=== PATIENT | male | born 1960 | race Caucasian/White ===

== ENCOUNTER → 2023-05-31 11:58 | Outpatient (CLI) | payer OTHER, SELFPAY ==
--- NOTE | 2023-05-31 12:00 | DI.RAD.S_ITS ---
PROCEDURE: XR LUMBAR SPINE 2-3V INDICATIONS: back pain TECHNIQUE: 3 views of the lumbar spine were acquired. COMPARISON: None. FINDINGS: Bones: 5 [id number] vertebrae are present. There is normal bony alignment. No vertebral body compression fractures. No suspicious bony lesions. Mild degenerative disc disease throughout the lumbar spine. Mild L4-L5 and L5-S1 facet arthropathy. Soft tissues: Overlying bowel gas pattern is normal. 4 millimeter stone projects over the midpole of the left kidney. IMPRESSION: 1. Multilevel degenerative disc disease. 2. Multilevel facet arthropathy. 3. No fracture. No acute osseous lesion. If symptoms and/or clinical suspicion for pathology persists, evaluation with MRI should be considered for further assessment. 4. Possible 4 millimeter left renal stone. Dictated by: Ruby Coelho MD, PhD on 05/31/2023 at 13:37 Approved by: Ruby Coelho MD, PhD on 05/31/2023 at 13:38
== END ==
PROVIDERS: PCP Family Medicine; Referring Provider Family Medicine; Visit Provider Family Medicine
DX: M47.816 Spondylosis without myelopathy or radiculopathy, lumbar region (principal); M47.817 Spondylosis without myelopathy or radiculopathy, lumbosacral region; M51.36 Other intervertebral disc degeneration, lumbar region; M54.50 Low back pain, unspecified
CPT/HCPCS: 72100

== ENCOUNTER → 2023-06-02 07:58 | Outpatient (CLI) | payer OTHER, SELFPAY ==
[2023-06-02 09:06] LABS: Add Manual Diff / Slide Review NO; Basophils Absolute Auto 0 /uL (0-100); Basophils Percent Auto 0.8 % (0-2); Eosinophils Absolute Auto 200 /uL (0-450); Eosinophils Percent Auto 4.3 % (2-4); Hematocrit 42.8 % (41-53); Hemoglobin 14.4 g/dL (13.5-17.5); Lymphocytes Absolute Auto 1400 /uL (1100-4500); Lymphocytes Percent Auto 33.5 % (25-40); Mean Corpuscular HGB Conc 33.7 % (30-36); Mean Corpuscular Hemoglobin 31.2 PG (26-34); Mean Corpuscular Volume 92.5 fL (80-100); Monocytes Absolute Auto 400 /uL (0-900); Monocytes Percent Auto 9.4 % (3-14); Neutrophils Absolute Auto 2200 /uL (1500-7000); Platelet Count 141 X10^3/uL (150-400); Red Blood Cell Count 4.62 X10^6/uL (4.5-5.9); Red Cell Distribution Width 13.5 % (11.6-14.8); White Blood Cell Count 4.2 X10^3/uL (4.5-11.0)
[2023-06-02 09:17] LABS: Alanine Aminotransferase 33 IU/L (<50); Albumin 4.3 g/dL (3.5-5.0); Albumin Globulin Ratio 1.8 (1.0-2.8); Alkaline Phosphatase 65 U/L (38-126); Aspartate Aminotransferase 38 IU/L (17-59); BUN Creatinine Ratio 17.6 (6-22); Bilirubin Total 0.7 mg/dL (0.2-1.3); Blood Urea Nitrogen 15 mg/dL (9-20); Carbon Dioxide 28 mmol/L (22-32); Chloride 104 mmol/L (98-107); Cholesterol 180 mg/dL (140-199); Estimated Glomerular Filt Rate > 60 mL/min (>60); Globulin 2.4 g/dL (1.7-4.1); Glucose 94 mg/dL (80-110); HDL Cholesterol 72 mg/dL (40-60); HEMOLYSIS < 15 (0-50); LDL Cholesterol Calculated 97 mg/dL (<100); Potassium 4.4 mmol/L (3.4-5.1); Sodium 137 mmol/L (137-145); Total Protein 6.7 g/dL (6.3-8.2); Triglycerides 56 mg/dL (35-150)
[2023-06-02 09:46] LABS: Prostate Specific Antigen 0.126 ng/mL (0.10-4.00)
== END ==
PROVIDERS: PCP Family Medicine; Referring Provider Family Medicine; Visit Provider Family Medicine
DX: E78.5 Hyperlipidemia, unspecified (principal); M19.90 Unspecified osteoarthritis, unspecified site; N40.0 Benign prostatic hyperplasia without lower urinary tract symptoms
CPT/HCPCS: 36415; 80053; 80061; 84153; 85025

== ENCOUNTER → 2023-06-30 11:35 | Outpatient (CLI) | payer OTHER, SELFPAY ==
--- NOTE | 2023-06-30 11:36 | DI.CT.S_ITS ---
PROCEDURE: CT IVP A/P W/WO INDICATIONS: Potential renal stone TECHNIQUE: Optional 5 mm thick noncontrast images acquired from the diaphragm to the symphysis pubis. After the administration of intravenous contrast, 5 mm thick images acquired from the diaphragm to the symphysis pubis after a 10-minute delay. 2 mm thick coronal and sagittal reformats were then performed of the kidneys and ureters. For radiation dose reduction, the following was used: automated exposure control, adjustment of mA and/or kV according to patient size. COMPARISON: [facility], CR, XR LUMBAR SPINE 2-3V, 05/31/2023, 12:04. FINDINGS: Image quality: Excellent. Lung bases: Lung bases are clear. Heart size is normal. Urinary system: There are 2 short linear nonobstructing stones in the lower pole of the right kidney. There is a 5 mm round stone in the midpole of the left kidney with Hounsfield units of 530 corresponding to the plain film finding. There are also 2 hyperdense cysts arising from the left kidney, the larger measuring 1.8 cm, and a few other simple parenchymal cysts. The ureters are nondilated. No ureteral calcifications. Normally opacified calices postcontrast. The urinary bladder is normal. Other solid organs: The liver is normal in size and contains occasional thin-walled cysts. Normal adrenal glands, spleen, pancreas, and biliary tree. Peritoneum and bowel: Bowel loops demonstrate normal wall thickness and caliber. No free fluid or air. Nodes and vessels: There is slight mesenteric fat stranding and several borderline mesenteric lymph nodes in the left upper quadrant mesentery. No other suspicious bulky or matted adenopathy in the mesentery or retroperitoneum. Normal variant circumaortic left renal vein. The vasculature is otherwise normal. Abdominal wall: Tiny fat containing umbilical hernia. Pelvis: Possible bilateral varicocele. Normal size prostate gland. No pelvic adenopathy. No inguinal hernias. No free pelvic fluid. Bones: 1.8 cm sclerotic mass in the right sacral ala, presumably benign bone island. No suspicious bone lesions. IMPRESSION: 1. Nonobstructing bilateral intrarenal calculi, left larger than right. 2. Benign-appearing left renal cysts. 3. Incidental mesenteric fat stranding and several lymph nodes may be reactive. Correlate with history of gastroenteritis. 4. Possible bilateral varicocele. Clinical correlation recommended. Dictated by: Ida Landis M.D. on 07/01/2023 at 12:19 Approved by: Ida Landis M.D. on 07/01/2023 at 12:29
== END ==
PROVIDERS: PCP Family Medicine; Referring Provider Family Medicine; Visit Provider Family Medicine
DX: N20.0 Calculus of kidney (principal); N28.1 Cyst of kidney, acquired
CPT/HCPCS: 74178; Q9967

== ENCOUNTER → 2023-08-11 13:36 | Outpatient (CLI) | payer OTHER, SELFPAY ==
--- NOTE | 2023-08-11 13:37 | DI.RAD.S_ITS ---
PROCEDURE: XR KUB INDICATIONS: Kidney stones TECHNIQUE: One view of the abdomen acquired. COMPARISON: [facility], CT, CT IVP A/P W/WO, 06/30/2023, 11:39. FINDINGS: Surgical changes and devices: None. Bowel: Bowel gas pattern is normal. Soft tissues: 2 millimeter calcific density projects over the right renal shadow. 5 millimeter calcific density projects over the left renal shadow. Bilateral lower pelvic phleboliths. Visualized solid organ contours appear normal in size. Bones: No suspicious bony lesions. IMPRESSION: Bilateral renal stones. Dictated by: Ruby Coelho MD, PhD on 08/11/2023 at 14:28 Approved by: Ruby Coelho MD, PhD on 08/11/2023 at 14:30
== END ==
PROVIDERS: PCP Family Medicine; Referring Provider Urology; Visit Provider Urology
DX: N20.0 Calculus of kidney (principal); N28.1 Cyst of kidney, acquired; N40.0 Benign prostatic hyperplasia without lower urinary tract symptoms; Z87.442 Personal history of urinary calculi
CPT/HCPCS: 74018; 81002

== ENCOUNTER → 2023-09-05 08:22 | Outpatient (CLI) | payer OTHER, SELFPAY ==
[2023-09-05 09:34] LABS: Hematocrit 41.9 % (41-53); Hemoglobin 14.4 g/dL (13.5-17.5); Mean Corpuscular HGB Conc 34.2 % (30-36); Mean Corpuscular Hemoglobin 31.3 PG (26-34); Mean Corpuscular Volume 91.4 fL (80-100); Platelet Count 142 X10^3/uL (150-400); Red Blood Cell Count 4.59 X10^6/uL (4.5-5.9); Red Cell Distribution Width 13.3 % (11.6-14.8); White Blood Cell Count 4.4 X10^3/uL (4.5-11.0)
== END ==
PROVIDERS: PCP Family Medicine; Referring Provider Urology; Visit Provider Urology
DX: D69.6 Thrombocytopenia, unspecified (principal)
CPT/HCPCS: 36415; 85027

== ENCOUNTER 2023-09-06 08:02 | Day surgery (SDC) | payer OTHER, SELFPAY ==
[2023-08-29 14:57] VITALS: BMI 26.4
[2023-09-06 08:22] VITALS: BMI 26.4
[2023-09-06 08:29] VITALS: BP 156/84; PULSE 92; RESP 17; TEMP 36.5; O2SAT 97
--- NOTE | 2023-09-06 08:31 | PM.PREOP ---
Pre-operative Note COVID-19 COVID-19 status: Not tested Interval Note History & Physical reviewed/Exam performed by Physician: Yes Changes to H&P: No
[2023-09-06] MEDS: LACTATED RINGERS 1,000 ML 21 ML IV (08:33)
[2023-09-06] MEDS: CEFAZOLIN 2 GM/100 ML PREMIX 100 ML IV (09:00)
--- NOTE | 2023-09-06 09:09 | SUR.OPER ---
Supine on ESWL table, head on gel donut, arms padded and tucked at sides, legs uncrossed for ESWL, for cystoscopy, legs up in stirrups.
--- NOTE | 2023-09-06 09:32 | PM.OP.1 ---
Procedure & Clinicians Procedure: Left extracorporeal shockwave lithotripsy with cystoscopy and left ureteral stent placement. Same procedure as scheduled: Yes Indications: This 63-year-old male was found to have bilateral renal calculi left greater than right incidentally found will being worked up for back pain. He presents this time to have the left-sided stones treated as they are the larger burden. They were also in the mid to upper kidney. Surgeon: Mars Louise Click Yes if Unassisted: Yes Anesthesia Type: General Operative Notes Findings: Findings: At cystoscopy the urethra was normal along its length the urethral meatus was normal mucosa was normal sphincter was well coapted in the prostate exhibited minimal to moderate obstructive character. The ureteral orifices in normal position with clear efflux. And there were no abnormalities in the bladder. The stone was noted to be in the mid kidney and was treated with shockwave at level 7 for a total of 1000 shocks. At this point the stone appeared completely fragmented in dissipated. A 7 [place] by multi length stent was left in place in the left collecting system without a string. There were no other abnormalities noted. Closure Type: not applicable Specimen(s): none sent Prosthetic devices, grafts, tissues, transplants, or devices: Seven [place] by multi length ureteral stent left collecting system no string Applied: other (Left ureteral stent) Estimated Blood Loss (mL): 0 Procedure in detail: Procedure in detail: After informed consent was obtained, the patient was identified and brought to the operating room where he was placed in a supine position on the Lithotripter. Once there he had anesthesia induced and maintained. Ensuring an adequate level of anesthesia the patient was transitioned to lithotomy position where he was prepped, draped come prepared for Transurethral procedure. After prepping, draping, ensuring an adequate level of anesthesia and time-out and administration of antibiotics a 22 [place] cystoscope was passed through the urethra prostate and in the bladder were cystoscopy was performed. With this done the right ureteral orifice was identified and a hybrid guidewire was passed up and into the collecting system under fluoroscopic visualization. The stent was then passed over the wire in a coaxial fashion position in the renal pelvis under fluoroscopic visualization of the bladder under direct vision. With the stent in good position the wire was removed followed by the nylon hardness. The stent was left in good position the bladder was drained and the scope was removed. The stone positioned via the imaging system and shockwave delivered at level 7 for a total of 1000 shocks with periodic reimaging and re localization to ensure maximal energy delivery to the stone. At a 1000 shockwave the stone appeared well fragmented and the shockwave head was rotated out and fluoroscopy performed stone appeared to be completely fragmented this point the procedure was stopped the patient was awakened having tolerated the procedure well and was transferred to the postanesthesia care unit for recovery. There were no complications Complications: none Post-operative Condition: stable Disposition: PACU Plan for aftercare: Patient will be discharged to home once fully awake and alert he will strain his urine and save any fragments to bring to follow-up. He will follow-up in approximately 10-14 days with a KUB thank you
[2023-09-06 09:35] VITALS: BP 139/76; PULSE 89; RESP 16; TEMP 36.2; O2SAT 97
[2023-09-06 09:40] VITALS: BP 142/81; PULSE 67; RESP 13; O2SAT 95
--- NOTE | 2023-09-06 09:42 | SUR.PHASEI ---
Received to PACU after general anesthesia. Airway patent, self maintained. Report from Dr Mcgee and ISAURA Cespedes.
[2023-09-06 09:45] VITALS: BP 148/78; PULSE 62; RESP 10; O2SAT 96
[2023-09-06 09:50] VITALS: BP 145/72; PULSE 64; RESP 14; O2SAT 97
[2023-09-06 09:52] VITALS: BP 146/70; PULSE 61; RESP 14; TEMP 36.2; O2SAT 96
[2023-09-06] MEDS: ACETAMINOPHEN 325 MG TABLET 650 MG PO (10:44)
== END 2023-09-06 11:20 | disposition home or self-care (01) ==
PROVIDERS: PCP Family Medicine; Referring Provider Urology; Visit Provider Urology
PROC: (CPT 50590; principal; 2023-09-06 09:00)
DX: N20.0 Calculus of kidney (principal)
CPT/HCPCS: 50590; 52332; J0690; J1100; J2405; J2704; J3010

== ENCOUNTER 2023-09-08 19:07 | Emergency (ER) | payer OTHER, SELFPAY ==
[2023-09-08] VITALS (7 sets, daily range): BP systolic 160–192; BP diastolic 80–98; PULSE 80–99; RESP 16–20; TEMP 36.8–37.2; O2SAT 95–96; BMI 26.4
--- NOTE | 2023-09-08 19:19 | ED_ITS ---
HPI - General Adult General Chief complaint: Fever Stated complaint: stint put in for kidney stones T-2 now has fever Time Seen by Provider: 09/08/23 19:10 Source: patient Mode of arrival: Ambulatory Limitations: no limitations History of Present Illness HPI narrative: Patient is a 63-year-old male. Approximately 2 days ago underwent a left-sided lithotripsy had 7 [place] ureteral stent placement. He is not currently on antibiotics. He states that his discomfort is actually improving. He did have some blood in his urine this morning. He does feel like he is peeing quite a bit but he also states he is drinking quite a bit of fluids. He thinks that his urine is darker than what it should be for the amount of fluids that he is drinking. No abdominal pain. He stated that he just started to feel warm earlier today so he took his temperature and it was elevated. Overall states he feels okay. Related Data Home Medications Medication Instructions Recorded Confirmed aspirin 81 mg tablet,delayed 81 mg PO DAILY 08/11/23 09/06/23 release (Adult Low Dose Aspirin) coQ10 (ubiquinol) 100 mg capsule 100 mg PO DAILY 08/11/23 09/06/23 (Qunol Ash CoQ10) fexofenadine 180 mg tablet 180 mg PO DAILY 08/11/23 09/06/23 gabapentin 300 mg capsule 600 mg PO BID pain/numbness leg, 08/11/23 09/06/23 back multivitamin 1 tab PO DAILY 09/06/23 09/06/23 Previous Rx's Medication Instructions Recorded finasteride 1 mg tablet 1 mg PO DAILY Hair loss prevention 05/31/23 #90 tabs lovastatin 40 mg tablet 40 mg PO DAILY Cholesterol control 05/31/23 #90 tabs triamcinolone acetonide 0.1 % 1 applic topical DAILY Cracking 05/31/23 topical cream skin - hands #30 grams oxybutynin chloride 5 mg tablet 5 mg PO BID-TID PRN bladder spasms 09/06/23 #30 tabs phenazopyridine 200 mg tablet 200 mg PO TID PRN Bladder 09/06/23 (Pyridium) irritation #30 tabs sulfamethoxazole 800 1 tab PO BID 3 days #6 tabs 09/08/23 mg-trimethoprim 160 mg tablet (Bactrim DS) Allergies Allergy/AdvReac Type Severity Reaction Status Date / Time No Known Drug Allergies Allergy Verified 09/06/23 09:38 Review of Systems Constitutional Constitutional: Reports system reviewed and no additional complaints, except as documented Cardiovascular Cardiovascular: Reports system reviewed and no additional complaints, except as documented Respiratory Respiratory: Reports system reviewed and no additional complaints, except as documented Gastrointestinal Gastrointestinal: Reports system reviewed and no additional complaints, except as documented Genitourinary Genitourinary: Reports system reviewed and no additional complaints, except as documented Integumentary/Breasts Skin/Breast: Reports system reviewed and no additional complaints, except as documented Patient History Medical History Retained ureteral stent Bilateral kidney stones Sciatica Renal cysts, acquired, bilateral Thrombocytopenia Nephrolithiasis Hyperlipidemia BPH (benign prostatic hyperplasia) Actinic keratosis (~2010) Osteoarthritis Sleep apnea (~2011) Allergies (~1960) Neurologic disorder Chronic back pain Chicken pox Cataracts, bilateral SVT (supraventricular tachycardia) (~2000) Skin cancer (~2010) Surgical History H/O circumcision Anesthesia [place] teeth removed Family History Father Skin cancer Low blood pressure Mother Stroke Multiple myeloma Brother Arthritis Sister Arthritis Social History marital status: unmarried,single occupational status: employed Smoking Status: Never smoker alcohol intake: current caffeine: Yes Type(s) of exercise: regular exercise, weight lifting and other Smoking Status: Never smoker alcohol intake frequency: a few times a week Substance Use Type: does not use Exam Initial Vital Signs Initial Vital Signs: Vital Signs Blood Pressure 192/98 H 09/08/23 19:12 HENMT Head: normal to inspection and normocephalic Resp Effort & Inspection: normal respiratory effort Cardio Rate: regular rate GI Inspection: normal to inspection and non-distended Palpation: soft and No tender Back/Spine/Pelvis Back: No CVA tenderness Skin General: no rashes or lesions noted Extrem General: capillary refill normal Course Orders Ordered: ED Orders 09/08/23 19:18 Urinalysis and Microscopic Stat Urine Culture Stat 09/08/23 19:30 Basic Metabolic Panel Stat Complete Blood Count AUTO DIFF Stat Discontinued Medications Ceftriaxone Sodium 2,000 mg/ (Sodium Chloride) 100 mls @ 200 mls/hr IV NOW ONE Stop: 09/08/23 19:41 Last Admin: 09/08/23 19:49 Dose: 200 mls/hr Documented By: GABINO Vital Signs Vital signs: Vital Signs - 8 hr 09/08/23 19:12 09/08/23 19:13 09/08/23 19:17 Temperature 99 F Pulse Rate 99 H 93 H Respiratory Rate 16 Blood Pressure 192/98 H 192/98 H Pulse Oximetry 96 96 Oxygen Delivery Method Room Air 09/08/23 19:27 09/08/23 19:27 09/08/23 19:30 Temperature Pulse Rate 82 81 Respiratory Rate Blood Pressure 181/89 H Pulse Oximetry 95 95 Oxygen Delivery Method 09/08/23 19:30 Temperature Pulse Rate Respiratory Rate Blood Pressure 169/82 H Pulse Oximetry Oxygen Delivery Method Medical Decision Making Lab Data 09/08/23 19:30 09/08/23 19:30 Labs: Lab Results 09/08/23 09/08/23 Range/Units 19:18 19:30 WBC 9.9 (4.5-11.0) X10^3/uL RBC 4.42 L (4.5-5.9) X10^6/uL Hgb 14.1 (13.5-17.5) g/dL Hct 40.4 L (41-53) % MCV 91.4 (80-100) fL MCH 31.8 (26-34) PG MCHC 34.8 (30-36) % RDW 13.5 (11.6-14.8) % Plt Count 132 L (150-400) X10^3/uL Neut % (Auto) 76.7 H (50-75) % Lymph % (Auto) 14.0 L (25-40) % Travis % (Auto) 8.5 (3-14) % Eos % (Auto) 0.4 L (2-4) % Baso % (Auto) 0.4 (0-2) % Neut # (Auto) 7600 H (0531-2046) /uL Lymph # (Auto) 1400 (0505-1044) /uL Travis # (Auto) 800 (0-900) /uL Eos # (Auto) 0 (0-450) /uL Baso # (Auto) 0 (0-100) /uL Sodium 133 L (137-145) mmol/L Potassium 3.8 (3.4-5.1) mmol/L Chloride 99 (98-107) mmol/L Carbon Dioxide 26 (22-32) mmol/L BUN 22 H (9-20) mg/dL Creatinine 1.35 H (0.66-1.25) mg/dL Estimated GFR 59 L (>60) mL/min BUN/Creatinine Ratio 16.3 (6-22) Glucose 137 H (80-110) mg/dL Calcium 9.4 (8.4-10.2) mg/dL Urine Color Yellow Urine Appearance Slightly cloudy Urine pH 6.5 (4.5-8.0) Ur Specific [place] <=1.005 (1.000-1.035) Urine Protein 2+ H (Negative) Urine Glucose (UA) Trace H (Negative) g/dL Urine Ketones Negative (NEGATIVE) Urine Occult Blood 3+ H (Negative) Urine Nitrate Positive H (Negative) Urine Bilirubin Negative (NEGATIVE) Urine Urobilinogen 0.2 (0.2) E.U./dL Ur Leukocyte Esterase Trace H (NEGATIVE) Urine RBC 5-10/hpf H (0-5/HPF) Urine WBC 1-5/hpf (0-5/HPF) Ur Squamous Epith Cells 0-1 /hpf (0-5/HPF) Urine Bacteria Few (2-10) H (None) Ur Culture Indicated? Specimen cultured MDM Narrative Medical decision making narrative: Patient is nontoxic appearing. Temperature of 99? here in the ER. No leukocytosis. He does have a nitrite positive urine and given his recent procedure this would be consistent with a urinary tract infection. Low suspicion for pyelo. Not vomiting. Will discharge patient home with antibiotics. He was given Rocephin here in the ER. Medications were sent to the pharmacy of his choice. There was a urine culture pending and we will contact him if we need to change antibiotics based on this. He was given return precautions. He expressed understanding and agreement with the plan. Discharge Plan Departure Patient Disposition: Home Clinical Impression: Urinary tract infection Instructions: DI for Urinary Tract Infection (UTI) Activity Restrictions/Additional Instructions: Continue all of the postprocedure instructions given to you by the urologist. On Tuesday I recommend that you contact his office for a follow-up. A prescription for antibiotics was sent to [facility]. Please pick it up tomorrow and start taking it as directed. A urine culture was pending at the time of your discharge and we will contact you if we need to change the antibiotics based on this culture. Return to the emergency department for new or worsening symptoms. Prescriptions: New sulfamethoxazole-trimethoprim [Bactrim DS] 800-160 mg tablet 1 tab PO BID 3 Days Qty: 6 0RF No Action oxybutynin chloride 5 mg tablet 5 mg PO BID-TID PRN (Reason: bladder spasms) Qty: 30 0RF finasteride 1 mg tablet 1 mg PO DAILY Qty: 90 1RF lovastatin 40 mg tablet 40 mg PO DAILY Qty: 90 1RF triamcinolone acetonide 0.1 % cream 1 applic topical DAILY Qty: 30 1RF Rx Instructions: Apply pea size amount to affected area multivitamin Tablet 1 tab PO DAILY phenazopyridine [Pyridium] 200 mg tablet 200 mg PO TID PRN (Reason: Bladder irritation) Qty: 30 0RF gabapentin 300 mg capsule 600 mg PO BID fexofenadine 180 mg tablet 180 mg PO DAILY aspirin [Adult Low Dose Aspirin] 81 mg tablet,delayed release (DR/EC) 81 mg PO DAILY coQ10 (ubiquinol) [Qunol Ash CoQ10] 100 mg capsule 100 mg PO DAILY Referrals: Duong Melissa DO [Primary Care Provider] - Stand Alone Forms: Patient Portal/API
[2023-09-08 19:28] LABS: Bilirubin Urine UA NEGATIVE (NEGATIVE); Color Urine UA YELLOW; Glucose Urine UA TRACE g/dL (Negative); Ketones Urine UA NEGATIVE (NEGATIVE); Leukocyte Esterase Urine UA TRACE (NEGATIVE); Nitrite Urine UA POSITIVE (Negative); Occult Blood Urine UA 3+ (Negative); Protein Urine UA 2+ (Negative); Specific Gravity Urine UA <=1.005 (1.000-1.035); Urobilinogen Urine UA 0.2 E.U./dL (0.2); pH Urine UA 6.5 (4.5-8.0)
[2023-09-08 19:29] LABS: Appearance Urine UA Slightly Cloudy
[2023-09-08 19:39] LABS: Bacteria Urine Few (2-10); Culture Indicated Urine Specimen Cultured; RBC Urine 5-10/HPF (0-5/HPF); Squamous Epithelial Cell Urine 0-1 /HPF (0-5/HPF); WBC Urine 1-5/HPF (0-5/HPF)
[2023-09-08 19:43] LABS: Add Manual Diff / Slide Review NO; Basophils Absolute Auto 0 /uL (0-100); Basophils Percent Auto 0.4 % (0-2); Eosinophils Absolute Auto 0 /uL (0-450); Eosinophils Percent Auto 0.4 % (2-4); Hematocrit 40.4 % (41-53); Hemoglobin 14.1 g/dL (13.5-17.5); Lymphocytes Absolute Auto 1400 /uL (1100-4500); Mean Corpuscular HGB Conc 34.8 % (30-36); Mean Corpuscular Hemoglobin 31.8 PG (26-34); Mean Corpuscular Volume 91.4 fL (80-100); Monocytes Absolute Auto 800 /uL (0-900); Monocytes Percent Auto 8.5 % (3-14); Neutrophils Absolute Auto 7600 /uL (1500-7000); Neutrophils Percent Auto 76.7 % (50-75); Platelet Count 132 X10^3/uL (150-400); Red Blood Cell Count 4.42 X10^6/uL (4.5-5.9); Red Cell Distribution Width 13.5 % (11.6-14.8); White Blood Cell Count 9.9 X10^3/uL (4.5-11.0)
[2023-09-08] MEDS: cefTRIAXone 2,000 MG in SODIUM CHLORIDE 0.9% 100 ML 200 MG IV (19:49)
[2023-09-08 20:00] LABS: BUN Creatinine Ratio 16.3 (6-22); Blood Urea Nitrogen 22 mg/dL (9-20); Calcium 9.4 mg/dL (8.4-10.2); Carbon Dioxide 26 mmol/L (22-32); Chloride 99 mmol/L (98-107); Estimated Glomerular Filt Rate 59 mL/min (>60); Glucose 137 mg/dL (80-110); HEMOLYSIS 24 (0-50); Potassium 3.8 mmol/L (3.4-5.1); Sodium 133 mmol/L (137-145)
== END 2023-09-08 20:30 | disposition home or self-care (01) ==
PROVIDERS: Emergency Provider Emergency Medicine; PCP Family Medicine
DX: N39.0 Urinary tract infection, site not specified (principal)
CPT/HCPCS: 36415; 80048; 81001; 85025; 87086; 96365; 99284; J0696

== ENCOUNTER → 2023-09-16 08:51 | Outpatient (CLI) | payer OTHER, SELFPAY ==
--- NOTE | 2023-09-16 08:52 | DI.RAD.S_ITS ---
PROCEDURE: XR KUB INDICATIONS: Follow-up kidney stone treatment TECHNIQUE: One view of the abdomen acquired. COMPARISON: [facility], , XR KUB, 08/11/2023, 13:41. FINDINGS: Surgical changes and devices: Left ureteral stent in place. Bowel: Bowel gas pattern is normal. Soft tissues: 2 mm calcific density projects over the right renal shadow. Left renal calcification is not well appreciated. No suspicious abdominal calcifications. Visualized solid organ contours appear normal in size. Bones: No suspicious bony lesions. IMPRESSION: Left ureteral stents in place. Stable 2 mm calcific density over the right renal shadow. Left renal calcification is not appreciated. Dictated by: Raheel Neri M.D. on 09/16/2023 at 10:28 Approved by: Raheel Neri M.D. on 09/16/2023 at 10:31
== END ==
PROVIDERS: PCP Family Medicine; Referring Provider Urology; Visit Provider Urology
DX: N20.0 Calculus of kidney (principal); Z87.442 Personal history of urinary calculi; Z96.0 Presence of urogenital implants
CPT/HCPCS: 74018

== ENCOUNTER → 2023-09-20 14:08 | Outpatient (CLI) | payer OTHER, SELFPAY | PROVIDERS: PCP Family Medicine; Visit Provider Urology | DX: N39.0 Urinary tract infection, site not specified (principal) | CPT/HCPCS: 81002; 87086 ==

== ENCOUNTER → 2023-09-21 11:14 | Outpatient (CLI) | payer OTHER, SELFPAY ==
[2023-09-29 17:53] LABS: Ca oxalate monohydr 100 % (.)
== END ==
PROVIDERS: PCP Family Medicine; Visit Provider Urology
DX: N20.0 Calculus of kidney (principal)
CPT/HCPCS: 82365

== ENCOUNTER → 2023-10-24 15:35 | Outpatient (CLI) | payer OTHER, SELFPAY ==
[2023-10-24 17:35] LABS: Phosphorous 3.1 mg/dL (2.3-3.7); Uric Acid 5.5 mg/dL (3.5-8.5)
[2023-10-27 14:24] LABS: Parathyroid Hormone, Intact 58 pg/mL (15-65)
== END ==
PROVIDERS: PCP Family Medicine; Referring Provider Urology; Visit Provider Urology
DX: N20.0 Calculus of kidney (principal); N40.0 Benign prostatic hyperplasia without lower urinary tract symptoms; N28.1 Cyst of kidney, acquired
CPT/HCPCS: 36415; 81002; 82310; 83970; 84100; 84550

== ENCOUNTER → 2023-11-17 08:54 | Outpatient (CLI) | payer OTHER, SELFPAY ==
[2023-11-17 10:17] LABS: Alanine Aminotransferase 32 IU/L (<50); Albumin 4.2 g/dL (3.5-5.0); Albumin Globulin Ratio 1.6 (1.0-2.8); Alkaline Phosphatase 65 U/L (38-126); Aspartate Aminotransferase 37 IU/L (17-59); Bilirubin Total 0.6 mg/dL (0.2-1.3); Blood Urea Nitrogen 12 mg/dL (9-20); Calcium 9.4 mg/dL (8.4-10.2); Carbon Dioxide 29 mmol/L (22-32); Chloride 103 mmol/L (98-107); Estimated Glomerular Filt Rate > 60 mL/min (>60); Globulin 2.6 g/dL (1.7-4.1); Glucose 89 mg/dL (80-110); HEMOLYSIS < 15 (0-50); Potassium 4.2 mmol/L (3.4-5.1); Sodium 138 mmol/L (137-145); Total Protein 6.8 g/dL (6.3-8.2)
[2023-11-17 10:48] LABS: Prostate Specific Antigen 0.132 ng/mL (0.10-4.00)
== END ==
PROVIDERS: PCP Family Medicine; Referring Provider Family Medicine; Visit Provider Family Medicine
DX: Z00.00 Encounter for general adult medical examination without abnormal findings (principal); Z12.5 Encounter for screening for malignant neoplasm of prostate; N40.0 Benign prostatic hyperplasia without lower urinary tract symptoms
CPT/HCPCS: 36415; 80053; 81002; 84153

== ENCOUNTER → 2024-07-05 15:48 | Outpatient (CLI) | payer BC, SELFPAY ==
--- NOTE | 2024-07-05 15:50 | DI.RAD.S_ITS ---
PROCEDURE: XR KUB INDICATIONS: Calculus of kidney TECHNIQUE: One view of the abdomen acquired. COMPARISON: [facility], CR, XR KUB, 09/16/2023, 8:56. [facility], CR, XR KUB, 08/11/2023, 13:41. FINDINGS: Surgical changes and devices: Been removed. Bowel: Bowel gas pattern is normal. Soft tissues: Right kidney is obscured by overlying stool. No definite left renal calculus identified radiographically. Visualized solid organ contours appear normal in size. Bones: No suspicious bony lesions. IMPRESSION: Left ureteral stent has been removed. No definite left renal calculus identified. Right kidney is obscured by overlying stool. Approved by: Alphonso Lyn M.D. on 07/05/2024 at 20:24
== END ==
LOC: RAD 15:49
PROVIDERS: PCP Family Medicine; Referring Provider Urology; Visit Provider Urology
DX: N20.0 Calculus of kidney (principal)
CPT/HCPCS: 74018

== ENCOUNTER 2024-08-14 07:40 | Day surgery (SDC) | payer BC, SELFPAY ==
--- NOTE | 2024-08-14 | PATH_ITS ---
[facility] Accession Number: [id number] No. of containers..01 Tissue . 01 Material submitted: . sigmoid colon - SIGMOID POLYP . 01 Diagnosis: SIGMOID COLON POLYP, BIOPSY: Hyperplastic polyp. MRV 08/15/2024 1350 Local . 01 Electronically signed: . Ivon Duffy MD, Pathologist NPI- [id number] . 01 Gross description: . SIGMOID POLYP: Received in formalin are 2 fragment(s) of joshi, soft tissue measuring 0.1 x 0.1 x 0.1 cm to 0.3 x 0.2 x 0.2 cm submitted entirely in 1 cassette(s) /VINICIO 08/15/2024 0103 Local . 01 Pathologist provided ICD-10: D12.5 . 01 CPT . 811426 Specimen Comment: A courtesy copy of this report has been sent to [phone] Performed at: [address] [id number] MD Wander Olvera MD Phone: [phone]
[2024-08-14 08:04] VITALS: BP 166/86; PULSE 92; RESP 17; TEMP 36.1; O2SAT 95
--- NOTE | 2024-08-14 08:06 | PM.HP.1 ---
History of Present Illness History of Present Illness Date Patient Seen: 08/14/24 Time Patient Seen: 08:06 Chief complaint: Screening Colonoscopy Narrative: 64-year-old man here for screening colonoscopy. Last colonoscopy 10+ years ago. No family history of colon cancer. No abdominal concerns today. [facility]LY [facility], [facility] Medical History Encounter for well adult exam without abnormal findings Lower urinary tract symptoms Calcium oxalate stones Retained ureteral stent Bilateral kidney stones Sciatica Renal cysts, acquired, bilateral Thrombocytopenia Nephrolithiasis Hyperlipidemia BPH (benign prostatic hyperplasia) Actinic keratosis (~2010) Osteoarthritis Sleep apnea (~2011) Allergies (~1960) Neurologic disorder Chronic back pain Chicken pox Cataracts, bilateral SVT (supraventricular tachycardia) (~2000) Skin cancer (~2010) Surgical History H/O circumcision Anesthesia [place] teeth removed Family History Father Skin cancer Low blood pressure Mother Stroke Multiple myeloma Brother Arthritis Sister Arthritis Social History marital status: unmarried,single occupational status: employed Smoking Status: Never smoker alcohol intake: current caffeine: Yes Type(s) of exercise: regular exercise, weight lifting and other Meds Home Medications and Allergies Home Medications Medication Instructions Recorded Confirmed Type triamcinolone acetonide 0.1 % 1 applic topical DAILY Cracking 05/31/23 07/12/24 Rx topical cream skin - hands #30 grams aspirin 81 mg tablet,delayed 81 mg PO DAILY 08/11/23 08/14/24 History release (Adult Low Dose Aspirin) coQ10 (ubiquinol) 100 mg capsule 100 mg PO DAILY 08/11/23 08/14/24 History (Qunol Ash CoQ10) fexofenadine 180 mg tablet 180 mg PO DAILY 08/11/23 08/14/24 History multivitamin 1 tab PO DAILY 09/06/23 08/14/24 History lovastatin 40 mg tablet 40 mg PO DAILY Cholesterol control 02/15/24 08/14/24 Rx #90 tabs finasteride 1 mg tablet 1 mg PO DAILY Hair loss prevention 07/12/24 08/14/24 Rx #90 tabs gabapentin 300 mg capsule 600 mg (2 x 300 mg) PO BID for 07/16/24 08/14/24 Rx pain #120 caps Allergies Allergy/AdvReac Type Severity Reaction Status Date / Time No Known Drug Allergies Allergy Verified 08/14/24 07:53 Exam Narrative Exam Narrative: General adult man alert oriented no acute distress Chest nonlabored respiration Extremities warm well perfused Assessment & Plan Assessment & Plan narrative: The patient requires colorectal screening and colonoscopy is recommended. Technical details were discussed. Risks, benefits, alternatives explained. Risks including but not limited to myocardial infarction, aspiration, bleeding, pain, missed lesion, incomplete examination, need for further radiographic studies, intestinal injury, and need for major abdominal surgery were discussed. All questions were answered to their satisfaction, and they are in agreement with this plan. Time-Based Coding :: [TOTAL MINUTES] spent with patient and on the chart (including review of chart, obtaining history, exam, reviewing outside data, placing orders, documenting exam and treatment plan, and counseling patient) on [DATE].
--- NOTE | 2024-08-14 08:36 | P.OP.COLON_ITS ---
Operative Date/Time/Diagnoses Date of procedure: 08/14/24 Time of procedure: 08:36 Pre-op diagnosis: Colorectal screening Procedure & Clinicians Study performed: Screening colonoscopy Same procedure as scheduled: Yes Indications: Colorectal screening Surgeon: Malcolm Quiros Procedure Notes Procedure in detail: The history and physical was performed/updated and the patient is ASA class is 2. The procedure was discussed in detail with the patient. Potential risks co mplications including infection, bleeding, missed diagnosis, perforation, need for surgery, and were explained. Their questions were answered and informed consent was obtained. Patient was brought to the procedure room and placed standard monitoring equipment. The patient's vital signs were monitored continuously throughout the entire procedure. Prior to starting time-out was performed. The patient was placed in the left lateral recumbent position. Procedural sedation was administered by anesthesia. Examination began with a thorough inspection of the perianal area there was no evidence of fissures, fistulae, external hemorrhoids or cutaneous malignancy. The colonoscopy scope was then placed into the anal canal and was advanced to the cecum, which was identified by the ileocecal valve, the appendiceal orifice and the confluence of the taenia. The scope was then slowly withdrawn examining colon thoroughly in all directions, irrigating it of any residual stool. The scope was retroflexed within the rectum The patient tolerated the procedure well. They will be discharged once criteria are met. The prep was of good/excellent quality. The withdrawl time was 7 minutes. FINDINGS * Sigmoid colon 3 mm polyp removed with biopsy forceps in entirety. Specimen(s): other (Sigmoid colon polyp) Impression: Colonic polyp x1 Post-procedure Plan for aftercare: Follow-up is dependent on pathology findings likely 5 years. Disposition: same day surgery
[2024-08-14 09:01] VITALS: BP 123/75; PULSE 10; RESP 14; TEMP 36.9; O2SAT 93
[2024-08-14 09:06] VITALS: BP 118/81; PULSE 75; RESP 19; O2SAT 94
[2024-08-14 09:15] VITALS: BP 136/83; PULSE 74; RESP 14; TEMP 36.9; O2SAT 99
== END 2024-08-14 09:16 | disposition home or self-care (01) ==
PROVIDERS: PCP Family Medicine; Referring Provider Surgery; Visit Provider Surgery
PROC: 0DJD8ZZ Inspection of Lower Intestinal Tract, Via Natural or Artificial Opening Endoscopic (ICD-10-PCS; CPT 45378; principal; 2024-08-14 08:45)
DX: Z12.11 Encounter for screening for malignant neoplasm of colon (principal); D12.5 Benign neoplasm of sigmoid colon
CPT/HCPCS: 45380; J2704

== ENCOUNTER → 2024-10-23 08:48 | Outpatient (CLI) | payer BC, SELFPAY ==
[2024-10-23 10:45] LABS: Alanine Aminotransferase 27 IU/L (<50); Albumin 4.2 g/dL (3.5-5.0); Albumin Globulin Ratio 1.8 (1.0-2.8); Alkaline Phosphatase 62 U/L (38-126); Aspartate Aminotransferase 35 IU/L (17-59); BUN Creatinine Ratio 18.4 (6-22); Bilirubin Total 0.5 mg/dL (0.2-1.3); Blood Urea Nitrogen 19 mg/dL (9-20); Calcium 9.5 mg/dL (8.4-10.2); Carbon Dioxide 29 mmol/L (22-32); Chloride 105 mmol/L (98-107); Estimated Glomerular Filt Rate > 60 mL/min (>60); Globulin 2.3 g/dL (1.7-4.1); Glucose 93 mg/dL (80-110); HEMOLYSIS < 15 (0-50); Potassium 4.1 mmol/L (3.4-5.1); Sodium 139 mmol/L (137-145); Total Protein 6.5 g/dL (6.3-8.2)
[2024-10-23 11:18] LABS: Prostate Specific Antigen 0.138 ng/mL (0.10-4.00)
== END ==
LOC: LAB 08:50
PROVIDERS: PCP Family Medicine; Referring Provider Family Medicine; Visit Provider Family Medicine
DX: Z00.00 Encounter for general adult medical examination without abnormal findings (principal); N40.0 Benign prostatic hyperplasia without lower urinary tract symptoms
CPT/HCPCS: 36415; 80053; 84153

== ENCOUNTER → 2025-07-03 10:52 | Outpatient (CLI) | payer BC, SELFPAY ==
--- NOTE | 2025-07-03 10:56 | DI.RAD.S_ITS ---
PROCEDURE: XR KUB INDICATIONS: Kidney stones TECHNIQUE: One view of the abdomen acquired. COMPARISON: [facility], CR, XR KUB, 07/05/2024, 15:51. FINDINGS: Surgical changes and devices: None. Bowel: Bowel gas pattern is normal. Prominent colonic stool. Soft tissues: No suspicious abdominal calcifications. Visualized solid organ contours appear normal in size. Bones: No suspicious bony lesions. IMPRESSION: No visualized calcifications suspicious for renal stone overlying the renal shadows or visualized expected course of the ureters. Dictated by: Ciara Crews M.D. on 07/03/2025 at 15:00 Approved by: Ciara Crews M.D. on 07/03/2025 at 15:02
== END ==
LOC: RAD 10:55
PROVIDERS: PCP Family Medicine; Referring Provider Urology; Visit Provider Urology
DX: N20.0 Calculus of kidney (principal)
CPT/HCPCS: 74018

== ENCOUNTER → 2025-08-06 08:39 | Outpatient (CLI) | payer BC, SELFPAY ==
[2025-08-06 09:03] LABS: Add Manual Diff / Slide Review NO; Hematocrit 43.0 % (41-53); Hemoglobin 14.7 g/dL (13.5-17.5); Lymphocytes Absolute Auto 1400 /uL (1100-4500); Mean Corpuscular HGB Conc 34.1 % (30-36); Mean Corpuscular Hemoglobin 31.4 PG (26-34); Mean Corpuscular Volume 92.0 fL (80-100); Platelet Count 149 X10^3/uL (150-400)
[2025-08-06 09:27] LABS: HEMOLYSIS 17 (0-50); Iron 123 ug/dL (49-181)
[2025-08-06 09:36] LABS: Alanine Aminotransferase 32 IU/L (<50); Albumin 4.4 g/dL (3.5-5.0); Albumin Globulin Ratio 1.6 (1.0-2.8); Alkaline Phosphatase 68 U/L (38-126); Blood Urea Nitrogen 17 mg/dL (9-20); Calcium 9.2 mg/dL (8.4-10.2); Carbon Dioxide 27 mmol/L (22-32); Chloride 104 mmol/L (98-107); Cholesterol 159 mg/dL (140-199); Globulin 2.7 g/dL (1.7-4.1); Glucose 92 mg/dL (70-99); HDL Cholesterol 73 mg/dL (40-60); HEMOLYSIS < 15 (0-50); Potassium 4.4 mmol/L (3.4-5.1); Sodium 138 mmol/L (137-145); Total Protein 7.1 g/dL (6.3-8.2); Triglycerides 59 mg/dL (35-150); Uric Acid 5.7 mg/dL (3.5-8.5)
[2025-08-06 09:41] LABS: Percent Iron Saturation 37 % (20-50); Total Iron Binding Capacity 330 ug/dL (261-462); Transferrin 294 mg/dL (206-381)
[2025-08-06 09:42] LABS: Estimated Glomerular Filt Rate 37 mL/min (>60)
[2025-08-06 10:17] LABS: Vitamin B12 703 pg/mL (239-931)
== END ==
PROVIDERS: PCP Family Medicine; Referring Provider Family Medicine; Visit Provider Family Medicine
DX: I10 Essential (primary) hypertension (principal); E78.00 Pure hypercholesterolemia, unspecified; D64.9 Anemia, unspecified
CPT/HCPCS: 36415; 80053; 80061; 82172; 82607; 83090; 83540; 83550; 84550; 85025

== ENCOUNTER → 2025-09-10 08:37 | Outpatient (CLI) | payer BC, SELFPAY ==
[2025-09-10 09:32] LABS: Alanine Aminotransferase 26 IU/L (<50); Albumin 4.6 g/dL (3.5-5.0); Albumin Globulin Ratio 1.8 (1.0-2.8); Alkaline Phosphatase 61 U/L (38-126); Blood Urea Nitrogen 16 mg/dL (9-20); Calcium 9.2 mg/dL (8.4-10.2); Carbon Dioxide 26 mmol/L (22-32); Chloride 107 mmol/L (98-107); Estimated Glomerular Filt Rate > 60 mL/min (>60); Globulin 2.5 g/dL (1.7-4.1); Glucose 99 mg/dL (70-99); HEMOLYSIS 24 (0-50); Potassium 4.3 mmol/L (3.4-5.1); Sodium 141 mmol/L (137-145); Total Protein 7.1 g/dL (6.3-8.2)
[2025-09-10 10:45] LABS: Microalbumi Creatinin Ratio Ur 5.0 ug/mg CR (<30)
== END ==
PROVIDERS: PCP Family Medicine; Referring Provider Family Medicine; Visit Provider Family Medicine
DX: N28.9 Disorder of kidney and ureter, unspecified (principal)
CPT/HCPCS: 36415; 80053; 82043; 82570